=== PATIENT | female | born 1985 ===

== ENCOUNTER 2018-01-17 10:10 | Emergency (ER) | payer SELFPAY ==
[2018-01-17 10:15] VITALS: BMI 30.2
[2018-01-17 10:18] VITALS: RESP 18
[2018-01-17] MEDS ORDERED: Sodium Chloride 0.9% 1,000 ML IV ONE (10:39)
[2018-01-17] MEDS ORDERED: Sodium Chloride 0.9% 1,000 ML ONE (10:49)
[2018-01-17 11:13] LABS: BASO % 0.3 % (0.0-2.0); EOS % 0.1 % (0.0-4.0); HEMOGLOBIN 13.3 g/dL (11.0-16.0); LYMPH # 2.5 K/uL (1.0-4.3); LYMPH % 26.8 % (20.0-40.0); MEAN CELL VOLUME 100.1 fL (81.0-99.0); MEAN CORPUSCULAR HEMOGLOBIN 35.2 pg (27.0-31.0); MEAN CORPUSCULAR HGB CONC 35.2 g/dL (33.0-37.0); MEAN PLATELET VOLUME 8.2 fL (7.2-11.7); MONO # 0.5 K/uL (0.0-0.8); MONO % 5.2 % (0.0-10.0); NEUT # 6.4 K/uL (1.8-7.0); NEUT % 67.6 % (50.0-75.0); RBC 3.78 Mil/uL (3.80-5.20); RED CELL DISTRIBUTION WIDTH 12.4 % (11.5-14.5); WHITE BLOOD COUNT 9.5 K/uL (4.8-10.8)
[2018-01-17 11:24] LABS: HCG,QUALITATIVE URINE POSITIVE (NEGATIVE)
[2018-01-17 11:31] LABS: ALB/GLOB RATIO 1.3 (1.0-2.1); ALBUMIN 4.2 g/dL (3.5-5.0); ALT/SGPT 20 U/L (9-52); AST/SGOT 16 U/L (14-36); BLOOD UREA NITROGEN 11 mg/dL (7-17); CALCIUM 9.3 mg/dl (8.6-10.4); GFR NON-AFRICAN AMERICAN > 60; LIPASE 273 U/L (23-300)
[2018-01-17 11:41] LABS: SQUAMOUS EPITHIAL 3 /hpf (0-5); URINE BILIRUBIN NEGATIVE (NEGATIVE); URINE BLOOD 2+ (NEGATIVE); URINE CLARITY Clear (Clear); URINE COLOR Yellow (YELLOW); URINE GLUCOSE (UA) NORMAL (Normal); URINE LEUKOCYTE ESTERASE NEG Leu/uL (Negative); URINE PROTEIN NEGATIVE (NEGATIVE); URINE UROBILINOGEN NORMAL mg/dL (0.2-1.0)
--- NOTE | 2018-01-17 11:58 | C.PDOC ---
History Of Present Illness 33 y/o female presents to ED with c/o epigastric abdominal pain for 1 week associated with x1 episode of nausea and vomiting this morning. Patient denies fever, chills, dysuria, hematuria, vaginal bleeding, vaginal discharge or any o ther complaints at this time. LMP 01/15/18 states has been irregular for last 2 months. Time Seen by Provider: 01/17/18 10:22 Chief Complaint (Nursing): Abdominal Pain History Per: Patient History/Exam Limitations: no limitations Onset/Duration Of Symptoms: Days Current Symptoms Are (Timing): Still Present Location Of Pain/Discomfort: Epigastric Past Medical History Reviewed: Historical Data, Nursing Documentation, Vital Signs Vital Signs: Last Vital Signs Temp 97.8 F 01/17/18 10:15 Pulse 87 01/17/18 10:15 Resp 18 01/17/18 10:15 BP 119/83 01/17/18 10:15 Pulse Ox 98 01/17/18 10:15 - Medical History PMH: No Chronic Diseases Surgical History: No Surg Hx Family History: States: No Known Family Hx - Social History Hx Alcohol Use: No Hx Substance Use: No - Immunization History Hx Tetanus Toxoid Vaccination: No Hx Influenza Vaccination: No Hx Pneumococcal Vaccination: No Review Of Systems Constitutional: Negative for: Fever, Chills Gastrointestinal: Positive for: Nausea, Vomiting, Abdominal Pain Genitourinary: Negative for: Dysuria, Hematuria, Vaginal Discharge, Vaginal Bleeding Musculoskeletal: Negative for: Back Pain Skin: Negative for: Rash Physical Exam - Physical Exam Appears: Non-toxic, No Acute Distress Skin: Warm, Dry, No Rash Head: Atraumatic, Normacephalic Eye(s): bilateral: Normal Inspection Oral Mucosa: Moist Neck: Normal ROM, Supple Cardiovascular: Rhythm Regular Respiratory: Normal Breath Sounds, No Rales, No Rhonchi, No Wheezing Gastrointestinal/Abdominal: Bowel Sounds, Soft, Tenderness (mild epigastric TTP, (-) Swain's, (-) McBurney's, no lower abdominal or pelvic tenderness), No Distention, No Guarding, No Rebound Back: No CVA Tenderness Neurological/Psych: Oriented x3, Normal Speech, Normal Cognition ED Course And Treatment - Laboratory Results Result Diagrams: 01/17/18 11:09 01/17/18 11:09 O2 Sat by Pulse Oximetry: 98 (RA) Pulse Ox Interpretation: Normal Progress Note: Beta HCG, Protonix, IV fluids Disposition Counseled Patient/Family Regarding: Studies Performed, Diagnosis, Need For Followup, Rx Given - Disposition Referrals: [facility] [Outside] [facility] [Outside] [facility] [Outside] Disposition: HOME/ ROUTINE Disposition Time: 13:15 Condition: STABLE Additional Instructions: FOLLOW UP WITH [facility] WITHIN 1 WEEK USE MEDICATIONS NEEDED RETURN TO EMERGENCY ROOM IF SYMPTOMS WORSEN SEGUIMIENTO CON OB / CERAMIC TILER DENTRO DE 1 SEMANA USE MEDICAMENTOS SEGN SEA NECESARIO REGRESE AL KRYSTYNA DE EMERGENCIA SI LOS SNTOMAS EMPEORAN Prescriptions: Famotidine [Pepcid] 20 mg PO BID PRN #15 tab PRN Reason: abdominal Ondansetron [Zofran Odt] 4 mg PO Q8 PRN #12 odt PRN Reason: Nausea/Vomiting 21/Iron Fu/Folic Acid [ Complete Caplet] 1 each PO DAILY #30 tablet Instructions: Nausea and Vomiting of (DC) Forms: [employer] (Hungarian) Print Language: AMHARIC - Clinical Impression Clinical Impression: Epigastric abdominal pain, , Nausea, Vomiting - Scribe Statement The provider has reviewed the documentation as recorded by the Scribwally Carreno All medical record entries made by the Jersonibwally were at my direction and personally dictated by me. I have reviewed the chart and agree that the record accurately reflects my personal performance of the history, physical exam, medical decision making, and the department course for this patient. I have also personally directed, reviewed, and agree with the discharge instructions and disposition.
[2018-01-17 13:35] VITALS: BP 108/68; PULSE 82; TEMP 98.6; O2SAT 100
== END 2018-01-17 13:34 | disposition home or self-care (01) ==
LOC: C.ER 10:10
DX: O26.891 Other specified pregnancy related conditions, first trimester (principal); O21.9 Vomiting of pregnancy, unspecified; R10.13 Epigastric pain; Z3A.00 Weeks of gestation of pregnancy not specified
CPT/HCPCS: 80053; 81001; 83690; 84702; 84703; 85025; 96361; 96374; 99284; C9113; J7030

== ENCOUNTER 2018-04-28 09:51 | Emergency (ER) | payer SELFPAY ==
[2018-04-28 10:00] VITALS: BMI 30.7
[2018-04-28 10:01] VITALS: BP 112/78; PULSE 82; RESP 18; TEMP 98.4; O2SAT 99
[2018-04-28] MEDS ORDERED: Acetaminophen 650mg/20.3ml solution UD PO STA (10:05)
--- NOTE | 2018-04-28 10:07 | C.PDOC ---
History Of Present Illness 33 yo female, presents with sore throat, subjective fever, minimal cough x 4 days. no other complaints Time Seen by Provider: 04/28/18 10:02 Chief Complaint (Nursing): ENT Problem Past Medical History Reviewed: Historical Data, Nursing Documentation, Vital Signs Vital Signs: Last Vital Signs Temp 98.4 F 04/28/18 09:59 Pulse 82 04/28/18 09:59 Resp 18 04/28/18 09:59 BP 112/78 04/28/18 09:59 Pulse Ox 99 04/28/18 09:59 Family History: States: Unknown Family Hx - Social History Hx Alcohol Use: Yes Hx Substance Use: No - Immunization History Hx Tetanus Toxoid Vaccination: No Hx Influenza Vaccination: No Hx Pneumococcal Vaccination: No Review Of Systems ENT: Positive for: Throat Pain Respiratory: Positive for: Cough Physical Exam - Physical Exam Appears: Well, No Acute Distress, Other (no hot potato voice , speaking full sentences in nad) Skin: Normal Color, Warm, Dry Eye(s): bilateral: Normal Inspection, PERRL, EOMI Nose: Normal Throat: Erythema, No Exudate Neck: Normal Cardiovascular: Rhythm Regular Respiratory: Normal Breath Sounds Gastrointestinal/Abdominal: Normal Exam, Soft, No Tenderness, No Guarding, No Rebound Back: Normal Inspection Extremity: Normal ROM ED Course And Treatment O2 Sat by Pulse Oximetry: 99 Medical Decision Making Medical Decision Making: vitals stable. high suspciion for influenza. will treat. speaking full sentences innad. vitals stable. no unilateral swelling hot pototo vocie. Disposition - Disposition Referrals: [facility] [Outside] [facility] [Outside] Disposition: HOME/ ROUTINE Disposition Time: 10:00 Condition: STABLE Prescriptions: Oseltamivir Phosphate [Tamiflu] 75 mg PO BID #10 capsule Instructions: Viral Syndrome (DC) Forms: [employer] (Cypriot) Print Language: POLISH - Clinical Impression Clinical Impression: Influenza-like illness
[2018-04-28 10:46] LABS: INFLUENZA A B NEGATIVE FOR FLU A/B (NEGATIVE)
== END 2018-04-28 11:25 | disposition home or self-care (01) ==
LOC: C.ER 09:51
DX: J11.1 Influenza due to unidentified influenza virus with other respiratory manifestations (principal)

== ENCOUNTER 2018-05-01 20:30 | Emergency (ER) | payer SELFPAY ==
[2018-05-01 20:31] VITALS: BMI 30.2
[2018-05-01 20:40] VITALS: BP 113/80; PULSE 99; RESP 18; TEMP 98.3; O2SAT 100
--- NOTE | 2018-05-01 20:45 | C.PDOC ---
History Of Present Illness 33 year old female presents to the emergency department with complaints of sore throat, cough, and subjective fever for the last four days. Three days ago, patient was treated for the flu at [facility] and was given Tamiflu. Patient reports that her throat still hurts. Patient states that her gave her Promethazine which provided relief. Patient states that 3 days ago she had a rapid strep test and throat culture done which resulted negative. Time Seen by Provider: 05/01/18 20:44 Chief Complaint (Nursing): Cough, Cold, Congestion History Per: Patient History/Exam Limitations: no limitations Onset/Duration Of Symptoms: Days (4) Location Of Pain: Throat Associated Symptoms: Fever, Sore Throat, Cough Past Medical History Reviewed: Historical Data, Nursing Documentation, Vital Signs Vital Signs: Last Vital Signs Temp 98.3 F 05/01/18 20:36 Pulse 99 H 05/01/18 20:36 Resp 18 05/01/18 20:36 BP 113/80 05/01/18 20:36 Pulse Ox 100 05/01/18 20:36 - Medical History PMH: No Chronic Diseases Surgical History: No Surg Hx Family History: States: No Known Family Hx - Social History Hx Alcohol Use: No Hx Substance Use: No - Immunization History Hx Tetanus Toxoid Vaccination: No Hx Influenza Vaccination: No Hx Pneumococcal Vaccination: No Review Of Systems Except As Marked, All Systems Reviewed And Found Negative. Constitutional: Positive for: Fever ENT: Positive for: Throat Pain Respiratory: Positive for: Cough Physical Exam - Physical Exam Appears: Non-toxic, No Acute Distress Skin: Normal Color, Warm, Dry Head: Atraumatic, Normacephalic Eye(s): bilateral: Normal Inspection, PERRL, EOMI Nose: Other (swollen turbinates) Oral Mucosa: Moist Throat: Normal, No Erythema, No Exudate Neck: Normal, Supple Chest: Symmetrical, No Tenderness Cardiovascular: Rhythm Regular, No Murmur Respiratory: Normal Breath Sounds, No Rales, No Rhonchi, No Wheezing Gastrointestinal/Abdominal: Soft, No Tenderness, No Guarding, No Rebound Extremity: Normal ROM Neurological/Psych: Oriented x3, Normal Speech, Normal Cognition ED Course And Treatment O2 Sat by Pulse Oximetry: 100 (RA) Pulse Ox Interpretation: Normal Disposition Counseled Patient/Family Regarding: Diagnosis, Need For Followup - Disposition Referrals: Clinic,Med Surg [Primary Care Provider] - Disposition: HOME/ ROUTINE Disposition Time: 21:09 Condition: STABLE Instructions: Viral Pharyngitis (DC), Influenza (ED), Upper Respiratory Infection (ED) Forms: [employer] (Bhutanese), Gen Discharge Inst Bhutanese Print Language: BELARUSIAN - POA Present On Arrival: None - Clinical Impression Clinical Impression: Influenza-like illness, Pharyngitis - Scribe Statement The provider has reviewed the documentation as recorded by the Scribe (Harman Schwab) Provider Attestation: All medical record entries made by the Scribe were at my direction and personally dictated by me. I have reviewed the chart and agree that the record accurately reflects my personal performance of the history, physical exam, medical decision making, and the department course for this patient. I have also personally directed, reviewed, and agree with the discharge instructions and disposition
== END 2018-05-01 21:14 | disposition home or self-care (01) ==
LOC: SUPCPDRO 20:30 → C.ER 20:30
DX: J11.1 Influenza due to unidentified influenza virus with other respiratory manifestations (principal); F17.210 Nicotine dependence, cigarettes, uncomplicated

== ENCOUNTER 2018-05-26 08:36 | Outpatient (CLI) | payer SELFPAY | END 2018-05-26 08:37 | disposition home or self-care (01) | LOC: C.LAB 08:36 | DX: N89.8 Other specified noninflammatory disorders of vagina (principal); Z86.2 Personal history of diseases of the blood and blood-forming organs and certain disorders involving the immune mechanism ==

== ENCOUNTER 2018-06-10 16:51 | Emergency (ER) | payer SELFPAY ==
[2018-06-10 16:51] VITALS: BMI 30.2
[2018-06-10 16:56] VITALS: BP 124/87; PULSE 99; RESP 18; TEMP 97.6; O2SAT 99
--- NOTE | 2018-06-10 17:13 | C.PDOC ---
History Of Present Illness 33 y/o female pt presents to the ER c/o nausea and vomiting for 1 hour. Pt just finished having lunch consisting of lobster stew from questionable restaurant. Pt denies diarrhea and abdominal pain. Time Seen by Provider: 06/10/18 17:05 Chief Complaint (Nursing): Abdominal Pain History Per: Patient History/Exam Limitations: no limitations Onset/Duration Of Symptoms: Hrs (1) Current Symptoms Are (Timing): Still Present Context: Food Past Medical History Reviewed: Historical Data, Nursing Documentation, Vital Signs Vital Signs: Last Vital Signs Temp 97.6 F 06/10/18 16:53 Pulse 99 H 06/10/18 16:53 Resp 18 06/10/18 16:53 BP 124/87 06/10/18 16:53 Pulse Ox 99 06/10/18 16:53 Family History: States: Unknown Family Hx - Social History Hx Alcohol Use: Yes Hx Substance Use: No - Immunization History Hx Tetanus Toxoid Vaccination: Yes Hx Influenza Vaccination: No Hx Pneumococcal Vaccination: No Review Of Systems Except As Marked, All Systems Reviewed And Found Negative. Gastrointestinal: Positive for: Nausea, Vomiting. Negative for: Abdominal Pain, Diarrhea Physical Exam - Physical Exam Appears: Non-toxic, No Acute Distress Skin: Warm, Dry Head: Normacephalic Eye(s): bilateral: Normal Inspection Oral Mucosa: Moist Chest: Symmetrical Cardiovascular: Rhythm Regular Respiratory: Normal Breath Sounds, No Rales, No Rhonchi, No Wheezing Gastrointestinal/Abdominal: Bowel Sounds (normal; active), Soft, No Tenderness, No Distention, No Guarding, No Rebound, Other ((-) mcburneys and (-) murpheys) Back: No CVA Tenderness Extremity: Normal ROM (x4) Neurological/Psych: Oriented x3, Normal Speech ED Course And Treatment O2 Sat by Pulse Oximetry: 99 (RA) Pulse Ox Interpretation: Normal Medical Decision Making Medical Decision Making: Plans: -- zofran prob food poisoning/intolerance restaurant "lobster stew" no diarrhea no Swain's sign to suspect GB benign exam Disposition Doctor Will See Patient In The: Office Counseled Patient/Family Regarding: Studies Performed, Diagnosis - Disposition Referrals: [facility] [Outside] [facility] [Outside] [facility] [Outside] [facility] [Outside] Disposition: HOME/ ROUTINE Disposition Time: 17:13 Condition: GOOD Additional Instructions: Zofran tableta cada 6 horas en lori de nausea/vomitos sigue con [facility] Prescriptions: Ondansetron ODT [Zofran ODT] 4 mg PO Q6H PRN #6 odt PRN Reason: Nausea/Vomiting Instructions: Nausea and Vomiting, Adult (DC) Forms: [employer] ([employer]) (Citizen Of [place]) Print Language: KOSOVAN - Clinical Impression Clinical Impression: Vomiting - Scribe Statement The provider has reviewed the documentation as recorded by the Nigel Lindsay Do Provider Attestation: All medical record entries made by the Scribe were at my direction and personally dictated by me. I have reviewed the chart and agree that the record accurately reflects my personal performance of the history, physical exam, medical decision making, and the department course for this patient. I have also personally directed, reviewed, and agree with the discharge instructions and disposition.
== END 2018-06-10 17:21 | disposition home or self-care (01) ==
LOC: C.ER 16:51
DX: R11.10 Vomiting, unspecified (principal)